=== PATIENT | male | born 1975 | race Caucasian/White ===

== ENCOUNTER → 2017-10-12 | Day surgery (SDC) | payer OTHER ==
[~2017-10-12] VITALS: Ht 175.3 cm; Wt 99.8 kg
[~2017-10-12] MED LIST: ADDERALL XR 3030 MG PO; NAPROSYN500 M1 PO
--- NOTE | 2017-10-12 10:45 | Operative Report ---
Operative/Inv Procedure Report Surgery Date: 10/12/17 Name of Procedure: Left distal biceps repair Pre-Operative Diagnosis: Complete left distal biceps tendon avulsion Post-Operative Diagnosis: Complete left distal biceps tendon avulsion Estimated Blood Loss: scant Surgeon/Outsole Leveler: Luke SCHWARTZ,Everett Almeida PA-C Anesthesia: laryngeal mask airway, block IV Fluids: 600mL Implants: Arthrex Distal Biceps Button Arthrex 7x10mm tenodesis screw Drains: None Specimens: None Microbiology: None Tourniquet: 106min Complications: None Condition: Stable Operative Indication: Isaias Yi is a 42-year-old [id number] male who sustained a left elbow injury while trying to independently lift a heavy stove. The stove slipped on the right side and he took the entire weight of the stove with his left arm. He felt a pop and immediate pain in the left medial elbow, with associated swelling and bruising. He was seen in the emergency department, where x-rays were obtained that showed no fractures. He presented to clinic, where an MRI was ordered which showed a complete avulsion of the distal biceps tendon. After discussing the risks, benefits, and alternatives to surgical intervention, the patient has opted to proceed with repair of the left distal biceps tendon avulsion. We discussed the risks of surgery, including nerve injury, vascular injury, elbow stiffness, and re-tear. Written consent was obtained. Operative/Procedure Note Note: Isaias Yi arrived at [facility] on 10/12/17. He was met in the preoperative area where his operative extremity was marked in his medical history was reviewed. A regional block was performed by the anesthesia service prior to surgery. The patient was taken to the operating room and placed supine on the operating room table. Care was taken to pad all bony prominences and SCDs were applied to bilateral lower extremities. The left upper extremity was supported by a dedicated hand table. A timeout procedure was performed in which the patient, operative extremity, and planned procedure were verified. The patient was induced under general anesthesia, and IV Ancef was provided for antibiotic prophylaxis. A nonsterile tourniquet was applied to the left upper arm and the left lower extremity was prepped and draped in the usual sterile fashion. A transverse incision measuring approximate 4 cm in length was marked 3 cm distal to the elbow for flexion crease. Bony landmarks were marked via palpation. The left upper extremity was exsanguinated using an Esmarch bandage, and the tourniquet raised to 250 mmHg. With the arm in supination, an incision was made through the skin and subcutaneous cutaneous tissues. We then switched a tenotomy scissor scissors and carefully dissected the subcutaneous tissues. Care was taken to obtain hemostasis and identify and protect all neurovascular structures throughout this case. Using blunt dissection under the proximal subcutaneous tissues, the stump of the retracted biceps tendon was identified and clamped with an Allis retractor. It was pulled from proximal to distal and any adhesive soft tissue was carefully removed. A fiber loop whipstitch was placed in the distal end of the tendon, and the distal damaged tendon was debrided. The whipstitch appeared to be loose, causing increased bulkiness of the tendon, and was therefore removed and re-stitched. The tendon was sized to 7 mm. The Arthrex distal tenodesis button was placed over the suture ends of the whipstitch and clamped. Attention was then turned to the exposure of the radial tuberosity. The brachioradialis muscle was carefully retracted laterally, while the pronator teres was retracted medially. Care is taken into protect the neurovascular structures encountered in the anterior arm and avoid excessive retraction. The proximal radius was identified and carefully debrided with blunt Homans placed both medially and laterally. A small C-wire was placed unicortical and the mini C-arm was used to verify the position. This was initially to proximal, close to the radial head, the C-wire was removed and further dissection was carried out distally to identify the radial tuberosity. A large venous plexus was encountered in the region of the radial tuberosity, as well as residual stump tissue of the biceps avulsion. Again blunt retractors were used both medial and lateral as well as retraction of the venous plexus. The radial nerve was identified and carefully protected, with avoidance of excessive retraction. The distal biceps stump was debrided using a rongeur. Again, a C-wire was used to verify the location prior to placement of the 3.2 mm spate tip drill bit. This was passed through both cortices of the radius. A 7.5 mm reamer was then used to over-drill the anterior cortex. Of note the arm was held in supination throughout this procedure to protect the posterior interosseous nerve. Once unicortical drill hole was created, the sutures of the distal bicep tendon were carefully passed underneath the venous plexus, down to the radial tuberosity. The arm was held in approximately 30 of flexion as the distal biceps button was passed through both cortices of the radial tuberosity and deployed on the posterior radius. The sutures were then tensioned appropriately to bring the distal end of the biceps tendon into the unicortical hole. A 7 x 10 mm interference screw was then placed and carefully positioned in the unicortical hole for additional fixation. Stable fixation of the distal biceps was notes as the elbow was taken through careful range of motion. The incision was copiously irrigated with normal saline. The tourniquet is released after 106 minutes and the surgical bed evaluated for hemostasis. No significant bleeding was encountered. The wound was again irrigated and the subcuticular layer closed with 2-0 Vicryl suture followed by running 3-0 Prolene for skin. Incision was further reinforced with Steri-Strips. A dry dressing was placed followed by a long-arm posterior splint with the arm in approximate 70 of flexion. Patient was then awoken from anesthesia and taken from the operating room to the postanesthesia care unit in stable condition.
== END ==
LOC: STS 03:01
DX: S46.211A Strain of muscle, fascia and tendon of other parts of biceps, right arm, initial encounter (principal); X50.0XXA Overexertion from strenuous movement or load, initial encounter
CPT/HCPCS: J0131; J0690; J1100; J1885; J2250; J2405